=== PATIENT | male | born 1985 | race Caucasian/White ===

== ENCOUNTER 2016-07-26 01:19 | Emergency (ER) | payer SELFPAY ==
[2016-04-21 15:34] VITALS: BMI 27.2
[~2016-07-26 01:19] MED LIST: CARAFATE1 G PO; OMEPRAZOLE40 MG PO
== END 2016-07-26 03:10 | disposition home or self-care (01) ==
LOC: D.ER 01:19
DX: R07.89 Other chest pain (principal); R73.9 Hyperglycemia, unspecified; K27.9 Peptic ulcer, site unspecified, unspecified as acute or chronic, without hemorrhage or perforation; E87.6 Hypokalemia

== ENCOUNTER 2016-08-04 12:45 | Emergency (ER) | payer SELFPAY ==
[2016-04-21 15:34] VITALS: BMI 27.2
== END 2016-08-04 13:30 | disposition left against medical advice (07) ==
LOC: D.ER 12:45
DX: R07.9 Chest pain, unspecified (principal); Z72.0 Tobacco use; R06.00 Dyspnea, unspecified

== ENCOUNTER 2020-10-02 05:13 | Emergency (ER) | payer BC ==
[~2020-10-02] VITALS: Ht 182.9 cm; Wt 100.0 kg
[~2020-10-02 05:13] MED LIST changes: +LEVSIN/ANASP0.125 MG PO; +PROTONIX40 MG PO
[2020-10-02 05:22] VITALS: Ht 182.9 cm; Wt 100.0 kg
[2020-10-02 06:06] LABS: CALC OSMOLALITY 281 mosm/kg (275-300); CALCIUM 9.5 mg/dL (8.5-10.1); CARBON DIOXIDE 25.5 mmol/L (21.0-32.0); CHLORIDE - SERUM 100 mmol/L (98-107); GLUCOSE 142 mg/dL (74-106); POTASSIUM - SERUM 3.8 mmol/L (3.5-5.1); SODIUM 139 mmol/L (136-145); UREA NITROGEN 17 mg/dL (7-18); eGFR NON AFRICAN AMERICAN > 90 mL/min (90-120)
[2020-10-02 06:12] LABS: ALBUMIN 4.1 g/dL (3.4-5.0); ALKALINE PHOSPHATASE 79 U/L (30-120); ALT (SGPT) 38 U/L (10-68); BILIRUBIN - TOTAL 0.47 mg/dL (0.2-1.3); LIPASE 123 U/L (73-393); PROTEIN - SERUM 7.4 g/dL (6.4-8.2)
[2020-10-02 06:23] LABS: BASOPHILS 0.5 % (0-2); EOSINOPHILS 0.3 % (0-7); HEMATOCRIT 45.1 % (42.0-54.0); HEMOGLOBIN 15.3 g/dL (13.5-17.5); LYMPHOCYTES 16.8 % (15-50); MCH 30.8 pg (26.0-34.0); MCV 90.5 fL (80.0-100.0); MEAN PLATELET VOLUME 7.7 fL (7.4-10.4); MONOCYTES 5.3 % (2-11); NEUTROPHILS 77.1 % (40-80); PLATELET COUNT 406 10x3/uL (130-400); RBC 4.98 10x6/uL (4.20-6.10); RDW 13.3 % (11.5-14.5); WBC 16.2 10x3/uL (4.8-10.8)
[2020-10-02] MEDS ORDERED: CARAFATE1 G PO (06:44)
[2020-10-02] MEDS ORDERED: REGLAN10 MG PO (06:44)
[2020-10-02] MEDS ORDERED: OMEPRAZOLE40 MG PO (06:44)
[2020-10-02 06:57] VITALS: BP 168/104
== END 2020-10-02 06:58 | disposition home or self-care (01) ==
LOC: D.ER 05:13
PROVIDERS: Family Medicine
DX: K21.9 Gastro-esophageal reflux disease without esophagitis (principal)